=== PATIENT | female | born 1970 | race Hispanic/Latino ===

== ENCOUNTER 2018-04-03 07:50 | Day surgery (SDC) | payer BC ==
[2018-04-02 13:13] LABS: BASOPHILS % (AUTO) 0.7 % (0.0-5.0); EOSINOPHILS % (AUTO) 0.8 % (0.0-8.0); LYMPHOCYTES % (AUTO) 27.3 % (21.0-51.0); MEAN CORPUSCULAR HEMOGLOBIN 30.9 pg (27.0-33.0); MEAN CORPUSCULAR HGB CONC 33.6 g/dL (32.0-36.0); MEAN CORPUSCULAR VOLUME 91.7 fL (79-99); MONOCYTES % (AUTO) 4.5 % (3.0-13.0); NEUTROPHILS % (AUTO) 66.7 % (40.0-77.0); NUCLEATED RED BLOOD CELLS 0.1 % (0.0-0.19); PLATELET COUNT (AUTO) 347 K/uL (130-400); RED BLOOD CELL COUNT(AUTO) 5.02 MIL/uL (4.00-5.50); RED CELL DISTRIBUTION WIDTH 12.9 % (11.0-15.5); WHITE BLOOD COUNT (AUTO) 8.8 K/uL (4.8-10.8)
[2018-04-02 13:23] LABS: BILIRUBIN,URINE Negative (NEGATIVE); COLOR,URINE Yellow (YELLOW); GLUCOSE, URINE (UA) Negative (NEGATIVE); KETONES,URINE Negative (NEGATIVE); LEUKOCYTE ESTERASE ,URINE Small (NEGATIVE); NITRATE,URINE Negative (NEGATIVE); OCCULT BLOOD,URINE Negative (NEGATIVE); PROTEIN,URINE Negative (NEGATIVE); UROBILINOGEN,URINE 0.2 mg/dL (0.2-1.0)
[2018-04-02 13:25] LABS: INR 0.95 (0.85-1.15)
[2018-04-02 13:27] LABS: ALBUMIN 4.3 g/dL (3.5-5.0); BILIRUBIN,TOTAL 0.9 mg/dL (0.2-1.0); CREATININE 0.6 mg/dL (0.5-1.5); POTASSIUM 4.1 mmol/L (3.5-5.1); TOTAL PROTEIN, SERUM 8.7 g/dL (6.0-8.3)
[2018-04-02 13:29] LABS: APPEARANCE,URINE CLEAR (CLEAR)
[2018-04-02 13:42] VITALS: BP 141/95
[2018-04-02 13:47] LABS: BACTERIA,URINE Rare /HPF (None Seen); RBC,URINE 0-1 /HPF (0-1); SQUAMOUS EPITHELIAL CELL,UR Rare /HPF (0-2); WBC,URINE 0-1 /HPF (0-1)
--- NOTE | 2018-04-02 14:48 | NUR ---
ABNORMAL EKG REPORTED ABNORMAL EKG TO DR. BELTRAN, NO NEW ORDERS GIVEN.
--- NOTE | 2018-04-02 16:47 | NUR ---
NOTE REPORTED UA TO DR ERAZO, NO FURTHER ORDERS GIVEN, OK TO PROCEED
[2018-04-03] VITALS (15 sets, daily range): BP systolic 107–136; BP diastolic 57–71
[~2018-04-03] VITALS: Ht 149.9 cm; Wt 73.9 kg
[2018-04-03] MEDS: CEFAZOLIN SODIUM 1 GM VIAL IVP SCH ×2 (05:00→13:40)
[2018-04-03] MEDS ORDERED: LACTATED RINGERS 1000ML 1,000 ML IV ONE (08:24)
--- NOTE | 2018-04-03 09:33 | NUR ---
CLIP NO CLIPPING NEEDED TO LEFT ANKLE , BUT LEFT ANKLE WIPPED WITH SHALINI BY RICHAR PT [facility]
[2018-04-03] MEDS ORDERED: ONDANSETRON HCL MDV 20ML 2 MG/ML VIAL ONE (13:35)
[2018-04-03] MEDS ORDERED: MIDAZOLAM HCL 1 MG/ML 2ML VIAL ONE (13:35)
[2018-04-03] MEDS ORDERED: LIDOCAINE PF 2% 5ML ABBOJECT ONE (13:35)
[2018-04-03] MEDS ORDERED: FENTANYL CITRATE PF 50 MCG/1 ML 2ML VIAL ONE (13:35)
[2018-04-03] MEDS ORDERED: PROPOFOL 10 MG/ML 20ML VIAL IV ONE (13:35)
[2018-04-03] MEDS ORDERED: EPHEDRINE SULFATE 50 MG/ML AMPULE ONE (13:51)
--- NOTE | 2018-04-03 15:21 | NUR ---
RECEIVED AWAKE ,COMFORTABLE ,DRESSING TO LT ANKLE CLEAN AND DRY WITH TOES EXPOSED ,CAPILLARY REFILL ,ABLE TO WIGGLE , BILATERAL PEDAL PULSES PRESENT,,ENCOURAGED TO DEEP BREATH ,REENFORCED TO KEEP LT LEG[ANKLE] ELEVATED INSTRUCTED,CALL [facility] IN RE[facility].
--- NOTE | 2018-04-03 15:35 | NUR ---
TALKING WITH FRIEND ,NO COMPLAINTS,CALL [facility] IN [place]
--- NOTE | 2018-04-03 16:05 | NUR ---
INSTRUCTIONS GIVEN TO FRIEND AND PATIENT---VERBALIZE UNDERSTANDING,,,STATES ALREADY HAS WALKER AT HOME,AWARE OF NO WT BEARING TO LT ANKLE,AND TO FOLLOW DR ERAZO INSTRUCTIONS,,PHOTOCOPY OF DISCHARGE ORDERS GIVEN TO FRIEND,,
--- NOTE | 2018-04-03 16:10 | NUR ---
ASSISTED TO BR VIA W/C --VOIDS ,TO CAR VIA W/C ,REENFORCED TO KEEP LT ANKLE ELEVATED.VERBALIZES UNDERSTANDING
== END 2018-04-03 16:15 | disposition home or self-care (01) ==
LOC: DAH 07:50
DX: T85.698A Other mechanical complication of other specified internal prosthetic devices, implants and grafts, initial encounter (principal); Z98.890 Other specified postprocedural states; Z87.81 Personal history of (healed) traumatic fracture; Z79.01 Long term (current) use of anticoagulants
CPT/HCPCS: 20680; 36415; 71045; 76000; 80053; 81001; 84703; 85025; 85610; 85730; 88300; 93005; A4218; A4649; A4930; A6223; J0690; J2001; J2250; J2704; J3010; J3490; J7120